=== PATIENT | male | born 2005 | race Caucasian/White ===

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

== ENCOUNTER 2023-08-15 14:47 | Outpatient (CLI) | payer BC | END 2023-08-15 14:48 | disposition home or self-care (01) | LOC: SCSRAD 14:47 | PROVIDERS: ATTEND Nurse Practitioner Family | DX: B34.9 Viral infection, unspecified (principal) | CPT/HCPCS: 71046 ==